=== PATIENT | female | born 1950 | race Caucasian/White ===

== ENCOUNTER 2017-04-13 13:38 | Inpatient (IN) | payer MEDICARE ==
--- NOTE | ~2017-04-13 | CN ---
Consultation Report [facility] [address] [place]. 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 She had a repair with an intercostal muscle patch at that time. She has had an NG tube in since that time, and has actually been fed for the last week with the NG tube which bypasses the area of repair. Gastrografin swallow done on 04/22/2017 demonstrated a leak emptying into a bladder track. She had a followup study done yesterday 04/28/2017, which I reviewed with the radiologist as it was being done showing a still small area of a contained track in the distal third of the esophagus that did not empty into the thoracic cavity proper. The patient has tolerated the NG feedings fine, but she has had the NG tube in long time and her nose quite sore. She originally refused the swallowing study yesterday, but agreed reluctantly. Since the leak did persist, it was reasonable to proceed with a jejunostomy tube which will be done. After this is done, she can get good nutritional support and have the NG tube removed and feedings. PAST MEDICAL HISTORY: She has a history of sinus surgery, hypertension, decreased lung function, chronic pain, thyroid surgery, and three failed sinuses surgeries. SOCIAL HISTORY: She lives alone and denies substance abuse or tobacco or alcohol utilization. PHYSICAL EXAMINATION: GENERAL: She is an extremely anxious moderately obese white female, in no acute distress at the time of this exam. NG tube in place. HEENT: Showed no real lateralization. NECK: Supple. CHEST: Clear with a left chest with some decreased inspiratory effort and a few scattered rales in the base. HEART: Revealed a regular rate and rhythm. ABDOMEN: Quite obese and soft with no history of previous surgery. No scars or problems other than the sites from previous subcu injections. EXTREMITIES: Grossly anatomic, moderately atrophic especially in the lower extremities. She has been quite deconditioned apparently since her original pathology was addressed. The patient is presently on a number of antibiotics including Zosyn, and I have discussed the case with Dr. Chong as well as his nurse, Beena Perez. We will go ahead and do a feeding jejunostomy laparoscopically assisted and risk of that procedure discussed with the Consultation Report [address] [facility] [address] NAME: BIBI TRUJILLO : 52 STATUS : ADM IN PAT#: [id number] AGE: 66 ADM/REG DATE : 04/13/17 MR#: [id number] REPORT SERV DATE: 04/29/17 DICTATED BY: ALANA COTTON III DATE: 04/29/17 REPORT STATUS : Draft TRANSCRIBED BY: VENESSA DATE: 04/29/17 patient including leak of the bowel, bowel obstruction, peritonitis, infection, and bleeding. DIAGNOSIS: The patient is status post Boerhaave syndrome with repair in need of nutritional support to allow rest of the esophageal lumen for expected slow resolution of the leak. RB/VENESSA Alana Cotton III, M.D. / [id number] CC: Raj Medrano MD UNKNOWN José Luis Chong Jr., M.D.
--- NOTE | ~2017-04-13 | CN ---
Consultation Report [facility] [address] [place]. [address] NAME: BIBI TRUJILLO : 52 STATUS : ADM IN PAT#: [id number] AGE: 66 ADM/REG DATE : 04/13/17 MR#: [id number] REPORT SERV DATE: 04/14/17 DICTATED BY: GAGAN WAGGONER DATE: 04/13/17 REPORT STATUS : Draft TRANSCRIBED BY: MODL DATE: 04/13/17 CONSULTATION DATE OF CONSULTATION: 04/13/2017 REASON FOR CONSULTATION: Evaluation for Boerhaave syndrome. HISTORY: The patient is a 66-year-old female, who presented to [facility] at approximately 0300 hours this morning after having what she describes as a food bolus the night previous. She has had history of multiple food boluses in the past for which she is cleared by gagging. However, this one persisted. She had pain in response to this and presented to the emergency department for intractable pain. GI was initially consulted, who are going to scope her this morning, however, a CT scan was obtained early this morning, which showed air-fluid levels in the esophagus, some free air around the esophagus, as well as a small left-sided pleural effusion. She has been transferred down to [facility] for further evaluation. The patient is overall comfortable at this time and said that she feels like she does not have a food bolus in her esophagus anymore. She has been started on a Protonix drip. She has been kept n.p.o. PAST MEDICAL HISTORY: Significant for hypertension, asthma, COPD, and obstructive sleep apnea. PAST SURGICAL HISTORY: Partial thyroidectomy and three sinus surgeries. FAMILY HISTORY: Significant for hypertension. ALLERGIES: CODEINE. HOME MEDICATIONS: Include aspirin and losartan. SOCIAL HISTORY: She lives with family. Denies tobacco or alcohol abuse. REVIEW OF SYSTEMS: Otherwise negative that which was stated in the HPI. PHYSICAL EXAMINATION: VITAL SIGNS: She is afebrile and vital signs are currently stable. HEENT: Normocephalic, atraumatic with no scleral icterus. NECK: Supple with no thyromegaly. CHEST: Clear to auscultation bilaterally. HEART: Regular rate and rhythm with no murmurs, rubs, or gallops. ABDOMEN: Soft, nontender, and nondistended. EXTREMITIES: Warm with 1+ distal pulses. No clubbing, cyanosis, or edema. MUSCULOSKELETAL: Grossly intact. NEUROLOGIC: Grossly intact. Consultation Report [facility] [address] [place]. [address] NAME: BIBI TRUJILLO : 51 STATUS : ADM IN PAT#: [id number] AGE: 66 ADM/REG DATE : 04/13/17 MR#: [id number] REPORT SERV DATE: 04/14/17 DICTATED BY: GAGAN WAGGONER DATE: 04/13/17 REPORT STATUS : Draft TRANSCRIBED BY: VENESSA DATE: 04/13/17 STUDIES: I personally reviewed her CT scan and agree with a small left-sided pleural effusion as well as air-fluid levels throughout the esophagus, as well as some air stranding around the distal esophagus. IMPRESSION: Boerhaave syndrome with possible food bolus. PLAN: I would recommend keeping her n.p.o. with fluid hydration and possible TPN in the future. We will send her for a swallowing study to evaluate the amount of leak if any persist. If she continues with food boluses when I asked GI to scope her to remove any food bolus disease. In the mean time, I would recommend following her with daily CBCs and if the effusion became larger, possibly tapping this or having IR placed a small bore tube. We will reserve surgery only if necessary and hopefully, this will heal itself. CCR/MODL Gagan Waggoner M.D. / [id number] CC: Rosana Telles M.D.
--- NOTE | ~2017-04-13 | IDS ---
Interim Discharge Summary [facility] [address] [place]. [address] NAME: IBBI TRUJILLO : 52 STATUS : ADM IN PAT#: [id number] AGE: 66 ADM/REG DATE : 04/13/17 MR#: [id number] REPORT SERV DATE: 04/27/17 DICTATED BY: ESTRELLA RUIZ DATE: 04/27/17 REPORT STATUS : Draft TRANSCRIBED BY: MODL DATE: 04/27/17 ADMISSION DATE: 04/13/2017 DISCHARGE DATE: CURRENT HOSPITAL DIAGNOSES: 1. Status post esophageal rupture status post repair on 04/13/2017. 2. Shock. 3. Severe delirium, markedly improved. 4. Supraventricular tachycardia. 5. Chronic obstructive pulmonary disease/asthma. 6. Diabetes. 7. Gastroesophageal reflux disease. CONSULTATIONS: Cardiology, Cardiothoracic Surgery, GI, and Critical Care. PROCEDURES: As listed in interim summary on the . CURRENT PHYSICAL FINDINGS AND HPI: Please see additional initial dictated H and P on the as well as interim summary by Dr. Hoang on the . Dictation will continue from that point. The patient was being seen by Pulmonary Critical Care and Cardiothoracic Surgery. She was improving from her delirium. Serial labs were followed and on the , CPAP trials were initiated. Additional labs were drawn including a BMP and a procalcitonin. On the , Lasix and albumin were given. PICC line was placed. Cardiology continued to follow. Her IV amiodarone was transitioned through her tube. After the PICC line was placed, TPN was initiated with pharmacy following. On the , full cultures were drawn including a central line culture, and vancomycin was initiated. TPN occurred without difficulty. On the , it was elected to proceed with weaning to extubation, if possible additional Lasix and albumin were given, and thiamine was initiated. On the , she required a Cardene drip. Cardiothoracic surgery also ordered a Gastrografin study on the . Pharmacy continued to follow her vancomycin and her TPN. On the , she had hypertension, hydralazine was given, and Cardiology was consulted. Cardizem drip was transitioned from the Cardene. On the , she continued again with albumin and Lasix. Levemir was initiated. PT was requested. Cardiology discontinued her amiodarone and her Cardene, started her on metoprolol, Norvasc, and clonidine. She also had an increase to a level 3 sliding scale. This titrated up on . On the , ARB losartan 50 was initiated. She started tube feeds and started weaning her Jevity. She continued with PT. Her chest tubes on the were transitioned to water seal, and she was felt able to transfer to the floor with again escalation in her insulin coverage. She was also starting to get slightly hypernatremic at that point, her free water was increased to 100, she was receiving tube feeds, weaning TPN, and IV normal saline at 30. She tolerated transition over to the tube feeds. Cardiology signed off on the recommending an additional 2 weeks of amiodarone per her NG tube and then discontinue. I saw her on the . Serial lab was ordered. Cardiothoracic Surgery continued monitoring her chest x-rays and repeating her swallow studies. Her free water was increased on the to 150. On the , she was evaluated by Psychiatry and felt safe to discontinue her Zyprexa. Gastrografin is currently pending. She did receive some IV fluids for her hypernatremia which has improved her sodium somewhat. Interim Discharge Summary [address] [address] NAME: BIBI TRUJILLO : 52 STATUS : ADM IN [facility]#: [id number] AGE: 66 ADM/REG DATE : 04/13/17 MR#: [id number] REPORT SERV DATE: 04/27/17 DICTATED BY: ESTRELLA RUIZ DATE: 04/27/17 REPORT STATUS : Draft TRANSCRIBED BY: MODL DATE: 04/27/17 A repeat will be done tomorrow. Her free water continued to be increased. She will have no tube feeds tonight pending her swallow study in a.m. TLF/LARRYL Estrella Ruiz M.D. / [id number] CC: Estrella Ruiz M.D.
--- NOTE | ~2017-04-13 | DS ---
Discharge Summary [facility] [address] [place]. [address] NAME: BIBI TRUJILLO : 52 STATUS : DIS IN PAT#: [id number] AGE: 66 ADM/REG DATE : 04/13/17 MR#: [id number] REPORT SERV DATE: 05/05/17 DICTATED BY: JENNIFER CHIU DATE: 05/04/17 REPORT STATUS : Draft TRANSCRIBED BY: MODL DATE: 05/04/17 ADMISSION DATE: 04/13/2017 DISCHARGE DATE: 05/04/2017 This dictation is in addition to interim discharge summary dictated by Dr. Barahona on 04/27/2017. I assumed care of the patient on 04/28/2017. At the time of my assumption of care, the patient was status post esophageal rupture repair, was transferred out of the ICU to the floor. The patient had repeat imaging to evaluate resolution of the rupture; however, per imaging, rupture was still present. Therefore, recommendation was made for a J tube to be placed for nutrition. The patient had a J-tube placed on 04/29/2017. She tolerated the procedure well. Nutrition was subsequently consulted. Recommendations were made for tube feed and tube feeds were initiated. The patient tolerated tube feeds well without any residuals and rate was slowly up titrated until reached a goal of 70. Also during her time under my care, the patient was re-evaluated by Physical Therapy with recommendations that the patient can be discharged home on Home Health. At the time of my assumption of care, the patient was hypernatremic that has subsequently been corrected. She has subsequently remained hemodynamically stable and has gradually improved both clinically and in terms of her strength. Given significant improvement during conclusion of workup during clearance by all specialties involved, the patient will be discharged home today with home health. Plan has been discussed with the patient, who voices understanding and is agreeable with this plan. All other information on the discharge summary remains the same. DISCHARGE MEDICATIONS: 1. Amiodarone 200 mg p.o. twice a day to be stopped 05/09/2017. 2. Losartan 50 mg p.o. daily. 3. Lopressor 25 mg p.o. twice a day. 4. Aspirin 81 mg p.o. daily. 5. Metformin 500 mg p.o. b.i.d. CONSULTANTS: CT Surgery and Psychiatry. DISPOSITION: The patient will be discharged home with home health. ACTIVITY: As tolerated. DIET: Diabetic diet. Greater than 30 minutes was spent providing counseling, medication reconciliation, and dictation of note. DICTATED BY: MD BIJU Dick/VENESSA Discharge Summary [facility] [address] [place]. [address] NAME: BIBI TRUJILLO : 52 STATUS : DIS IN PAT#: [id number] AGE: 66 ADM/REG DATE : 04/13/17 MR#: [id number] REPORT SERV DATE: 05/05/17 DICTATED BY: JENNIFER CHIU DATE: 05/04/17 REPORT STATUS : Draft TRANSCRIBED BY: VENESSA DATE: 05/04/17 Jennifer Chiu MD / [id number] CC: MD Radha Dick M.D.
--- NOTE | ~2017-04-13 | IDS ---
Interim Discharge Summary [facility] [address] [place]. [address] NAME: BIBI TRUJILLO : 52 STATUS : ADM IN PAT#: [id number] AGE: 66 ADM/REG DATE : 04/13/17 MR#: [id number] REPORT SERV DATE: 04/19/17 DICTATED BY: EARNESTINE HOANG IV DATE: 04/19/17 REPORT STATUS : Draft TRANSCRIBED BY: MODAlberto DATE: 04/19/17 ADMISSION DATE: 04/13/2017 DISCHARGE DATE: Date of the transfer to the [facility] is 04/13/2017. REASON FOR ADMISSION: 1. Esophageal rupture, status post repair on 04/13/2017. 2. Shock, requiring vasopressor agents, now off. 3. Severe delirium with concerns about outpatient psychiatric issues, improved on sublingual Zyprexa as well as Precedex. 4. SVT, on amiodarone drip. 5. COPD/asthma, on bronchodilator medications. 6. New diagnosis of diabetes mellitus, on insulin coverage. 7. GERD. CONSULTANTS: 1. [facility], who have signed off. 2. Cardiothoracic Surgery, who continued to follow the patient. 3. Gastroenterology, who have signed off. 4. Critical Care Medicine, who assumed primary responsibility. SURGERIES: The patient underwent primary repair of the esophageal tear and removal of food from the left thorax on 04/13/[address] Leonardo and assisted by Dr. Jeff. MEDICATIONS: Please see the electronic record. HOSPITAL COURSE: The patient presented to [facility] with a sensation of food lodging after eating steak and potatoes. CT scan demonstrated no obvious tear, though bilateral small effusions with esophageal thickening. The patient was transferred as per Gastroenterology's recommendations to the [facility] to the Critical Care Service. Dr. Burnette saw the patient. A Gastrografin study demonstrated complete obstruction at the gastroesophageal junction with extravasation of contrast into the left paraesophageal space and a distal tear. The patient underwent surgery with a left thoracotomy and evacuation of food and repair of the esophageal rupture. Chest tube was left in place. Postoperatively, the patient was hemodynamically unstable and required vasopressor agents. The patient was empirically placed on vancomycin, Zosyn, and Diflucan; however, all subsequent cultures have been negative to date. The patient developed severe postoperative delirium and self extubated on 04/14/2017. She was reintubated on 04/15/2017 and has continued to have significant delirium. That has improved on Precedex and the initiation of sublingual Zyprexa, which she continued to receive. Cardiothoracic Surgery has not allowed use of her nasogastric tube, though is allowing medications starting on 04/19/2017. The patient developed SVT on 04/15/2017, for which she was placed on amiodarone drip and Cardiology was consulted. She has remained in normal sinus; however, she remains on low-dose amiodarone drip as well. Hemoglobin A1c was found to be markedly elevated at 10.4 and she has been on insulin coverage, though currently has received no nutrition, which hopefully we will be Interim Discharge Summary [address] [place]. [address] NAME: BIBI TRUJILLO : 52 STATUS : ADM IN PAT#: [id number] AGE: 66 ADM/REG DATE : 04/13/17 MR#: [id number] REPORT SERV DATE: 04/19/17 DICTATED BY: EARNESTINE HOANG IV DATE: 04/19/17 REPORT STATUS : Draft TRANSCRIBED BY: VENESSA DATE: 04/19/17 able to start in the next few days through the nasogastric tube. She developed some wheezing, for which she is on bronchodilator medications. The patient, had previously, because of her agitation, not been able to be initiated on weaning trials, which have been initiated at this time. The Critical Care team will continue to follow the patient. PRAKASH/VENESSA Earnestine Hoang IV, M.D. / [id number] CC: Campbell Granados MD
--- NOTE | ~2017-04-13 | OP ---
Record Of Operation [facility] [address] [place]. [address] NAME: BIBI TRUJILLO : 52 STATUS : ADM IN [facility]#: [id number] AGE: 66 ADM/REG DATE : 04/13/17 MR#: [id number] REPORT SERV DATE: 04/14/17 DICTATED BY: GAGAN WAGGONER DATE: 04/13/17 REPORT STATUS : Draft TRANSCRIBED BY: MODL DATE: 04/13/17 DATE OF PROCEDURE: 04/13/2017 PREOPERATIVE DIAGNOSIS: Ruptured esophagus with food bolus. POSTOPERATIVE DIAGNOSIS: Ruptured esophagus with food bolus. PROCEDURE: 1. Emergency left thoracotomy with evacuation of food bolus and two layer repair of esophageal rupture. 2. Intercostal muscle patch. SURGEON: Gagan Waggoner M.D. DIE TURNER SURGEON: José Luis Jeff M.D. SURGICAL ASSISTANTS: Aguilar Cook MD and Mack Botello. SPECIMENS REMOVED: Food bolus. ESTIMATED BLOOD LOSS: 100 mL. SPECIMENS: Also left milky pleural effusion approximately 500 mL and sent for culture. COMPLICATIONS: None. CONDITION: Guarded to ICU. HISTORY: The patient is a 66-year-old female, who presented to the emergency department with a food bolus. She has had multiple fluid boluses in the past. This is normally cleared by retching. Unfortunately after period of retching, she had extreme chest and thigh pain, and a CT scan showed an esophageal tear with containment in the mediastinum. She then underwent an esophageal swallow study which showed the food bolus to be present with a large posterior leak. She was therefore brought emergently to the operating room. PROCEDURE: After informed consent was obtained from the patient, she was brought to the operating room, laid in a supine position and general anesthesia was induced. She was then placed in a right lateral decubitus position and prepped and draped in normal fashion. A posterior lateral left thoracotomy incision was made. The latissimus dorsi was . The ribs were counted, and the 6th intercostal space was entered. An intercostal muscle patch was also harvested at this time. This was pedicled at the posterior portion. The inferior ligament of the left lower lobe was taken down using Bovie electrocautery. There was obvious contamination with milky pleural effusion evacuated and sent for culture. Dissection was then carried above the aorta in the region of the esophagus. There was food bolus that had exited the esophagus, and this was evacuated. The esophagus was identified, and a Rio drain placed around the esophagus. The muscular layer was Record Of Operation [facility] [address] [facility] [place]. [address] NAME: BIBI TRUJILLO : 52 STATUS : ADM IN PAT#: [id number] AGE: 66 ADM/REG DATE : 04/13/17 MR#: [id number] REPORT SERV DATE: 04/14/17 DICTATED BY: GAGAN WAGGONER DATE: 04/13/17 REPORT STATUS : Draft TRANSCRIBED BY: MODL DATE: 04/13/17 proximally and distally to delineate the true extent of the mucosal injury. A 28 bougie was placed down the esophagus and distal into the stomach. Interrupted 4-0 PDS in a figure-of- eight were placed to repair the mucosal layer. This time, the bougie was removed and a nasogastric tube placed distally into the stomach. The muscular layer was then repaired using interrupted 4-0 PDS in a [id number] fashion. The intercostal muscle patch was then laid on top of the defect and tacked down using Prolene sutures. A 28 straight chest tube and a 32 angled chest tube were placed. A #19 Maycol was also placed through a separate incision and laid over top of the repair. The ribs were reapproximated using #2 Vicryl sutures in a [id number]-[id number] fashion. The lungs were insufflated and filled the cavity well. The latissimus dorsi was then reapproximated followed by the subcutaneous and subcuticular tissue. Overall, the patient tolerated procedure well, was transported to the ICU, intubated in guarded condition. CCR/MODL Gagan Waggoner M.D. / [id number] CC: Rosana Telles M.D.
--- NOTE | ~2017-04-13 | OP ---
Record Of Operation [facility] [address] [place]. [address] NAME: BIBI TRUJILLO : 52 STATUS : ADM IN PAT#: [id number] AGE: 66 ADM/REG DATE : 04/13/17 MR#: [id number] REPORT SERV DATE: 04/29/17 DICTATED BY: ALANA COTTON III DATE: 04/29/17 REPORT STATUS : Draft TRANSCRIBED BY: MODL DATE: 04/29/17 DATE OF PROCEDURE: 04/29/2017 PREOPERATIVE DIAGNOSIS: The patient needed nutritional support after a Boerhaave syndrome with repair done on 04/13/2017 and documented leak at the site of the repair on two different swallow tests. The patient needs to rest her esophagus for proposed spontaneous scarring in and nutritional support needed via another enteral access. POSTOPERATIVE DIAGNOSIS: The patient needed nutritional support after a Boerhaave syndrome with repair done on 04/13/2017 and documented leak at the site of the repair on two different swallow tests. The patient needs to rest her esophagus for proposed spontaneous scarring in and nutritional support needed via another enteral access. PROCEDURE: Laparoscopic-assisted feeding jejunostomy followed by the block of the left costal margin using 30 mL of 0.5% Marcaine with epinephrine. HANGER OFF: Kati Cotton RN, [facility]. ANESTHESIA: General with endotracheal tube, supplemented with the left costal margin block, performed by this physician. SPECIMEN: There was no specimen. ESTIMATED BLOOD LOSS: Less than 10 mL. COMPLICATION: Instruments not available for the operative laparoscope and had to be sent for, which caused a significant delay in the operation with the patient under anesthesia. PROCEDURE IN DETAIL: The patient was prepped and draped in routine fashion. Adequate general anesthesia endotracheally administered and a time-out was called. All personnel were in agreement with the antibiotics, the allergies, and proposed procedure. The patient is allergic to codeine. The patient's abdomen was approached through a small left upper quadrant transverse incision. An open trocar technique was used to place a 12 mm balloon port in the peritoneal cavity. The operating telescope was then used with a 0 angle and the operating arm was utilized to manipulate the bowel. The omentum was stuck down to the left lateral gutter. The omentum was quite abundant and there was a lot of gaseously distended small bowel Due to the inability to get a satisfactory grasping forceps to work through the operative scope, it was necessary to put an extra 5 mm port in the patient's left lower quadrant and a third port was placed at the site for the proposed feeding jejunostomy tube in the left lower quadrant more laterally and more at the mid axillary line, which the second trocar 5 mm trocar placed at the midclavicular line. The laparoscopic view showed a relatively normal liver and normal intestine with a few adhesions. The 5 mm trocar sites were used for manipulation of the small bowel and the bowel was run by bioinstrumentation technique. I initially run the bowel from the mid portion all way to the ileocecal valve. After this had Record Of Operation [facility] [address] [place]. [address] NAME: BIBI TRUJILLO : 52 STATUS : ADM IN [facility]#: [id number] AGE: 66 ADM/REG DATE : 04/13/17 MR#: [id number] REPORT SERV DATE: 04/29/17 DICTATED BY: ALANA COTTON III DATE: 04/29/17 REPORT STATUS : Draft TRANSCRIBED BY: VENESSA DATE: 04/29/17 been established, the bowel was run retrograde all the way to the ligament of Treitz. After the ligament of Treitz had been clearly identified, the bowel approximately 35 cm from the ligament of Treitz was marked with a score using cautery and the bowel was brought up through the 5 mm incision site, which was enlarged with a scalpel opening the fascia and allowing the bowel to be brought up as an apex of the bowel, brought up through the 5 mm trocar site utilizing an atraumatic forceps to bring it up the appropriate level. A cautery scoring was utilized to steven the distal side of the bowel so that we could thread the jejunostomy tube in that direction. After this was done, the bowel was brought up to the surface of the incision and enlarged approximately 3 cm and the small bowel apex was brought up and the pursestrings placed doubly using 3-0 silk suture into the apex of the jejunum. The gastrointestinal feeding tube 22-Indian with a jejunostomy feeding extension was then utilized with a total length of the jejunal length was 57.9 cm. The gastric end was placed in the small bowel through the double pursestring and the jejunal limb threaded into the small bowel with the weighted tip pointed distally. It was impossible to totally thread the bowel due to the small incision, but the weighted tip should allow it to go distally with the peristaltic motion. Both the limbs irrigated nicely with no resistance and no leakage. After this was done, a serosal tunnel was created with 3-0 silk Lembert sutures over the bowel tube. 2-0 silk was then utilized to sew the jejunostomy tunneled section to the fascia and posterior fascia and peritoneum. After this was done, irrigation carried out and the procedure closed with a running suture of 0 Vicryl using suture from both the ends of the 3.5 cm left lower quadrant incision. After this was done, the area was reinspected utilizing the scope in the left upper quadrant and it appeared that the peritoneum was not very fully closed, therefore, a Chris trocar closure device was used to pull the peritoneal and posterior fascia levels together using 0 Vicryl under laparoscopic control. After this was placed, we tied down, good approximation of the peritoneum anterior and posterior fascias was accomplished. This was done using two different [id number] sutures of 0 Vicryl. After this was done, the area was irrigated with normal saline and the subcutaneous tissue closed with running suture of 3-0 Vicryl. The skin was closed with running subcuticular suture of 4-0 Monocryl. The left upper quadrant 12 mm trocar site was closed with figure-of eight sutures of 0 Vicryl and the subcutaneous tissue was irrigated and closed with interrupted 3-0 Vicryl. The skin was closed with running subcuticular suture of 4-0 Monocryl. The trocar sites being closed at the skin level all completely with 4-0 Monocryl subcuticular suture. Bandages were applied and the jejunostomy, gastric, and jejunal level limbs were irrigated. Since the gastric limb was truly not in the stomal, it was elected to place the gastric limb with approximately 5 mL of saline in the jejunal lumen, but the label was removed using a #10 knife blade, so that it did not read a gastric lumen since it is truly in the jejunum as was the other limb. Either limb could be used for feedings, but technically the distal limb would be more appropriate since it is further down in the jejunum. After this was completed, all wounds were dressed and the procedure was concluded. Left Record Of Operation [facility] [address] [place]. [address] NAME: BIBI TRUJILLO : 52 STATUS : ADM IN PAT#: [id number] AGE: 66 ADM/REG DATE : 04/13/17 MR#: [id number] REPORT SERV DATE: 04/29/17 DICTATED BY: ALANA COTTON III DATE: 04/29/17 REPORT STATUS : Draft TRANSCRIBED BY: VENESSA DATE: 04/29/17 costal margin block was performed using 30 mL of 0.5% Marcaine with epinephrine as well as local infiltration around the incision sites. The patient tolerated the procedure well. RB/VENESSA Alana Cotton III, M.D. / [id number] CC: Raj Medrano MD UNKNOWN José Luis Chong Jr., M.D.
--- NOTE | ~2017-04-13 | CN ---
Consultation Report [facility] [address] [place]. [address] NAME: MARIA INES TRUJILLO : 52 STATUS : ADM IN PAT#: [id number] AGE: 66 ADM/REG DATE : 04/13/17 MR#: [id number] REPORT SERV DATE: 04/16/17 DICTATED BY: MARCUS MO DATE: 04/15/17 REPORT STATUS : Draft TRANSCRIBED BY: MODL DATE: 04/15/17 CARDIOLOGY CONSULTATION DATE OF CONSULTATION: 04/15/2017 REQUESTING PROVIDER: CT Surgery Service, Himanshu Zimmerman. INDICATIONS: SVT. HISTORY OF PRESENT ILLNESS: Ms. Maria Ines Trujillo is a 66-year-old female, who initially presented to [facility] where she was found to have a Boerhaave syndrome with intractable chest pain. She was found to have a ruptured esophagus, underwent thoracotomy and esophageal repair with Dr. Gagna Baez. This was performed on 04/13/2017. A food bolus was removed. She has had difficulties with some delirium and agitation in the ICU requiring significant sedation. She has had runs of SVT, question reentrant versus PAT with rates up to 170 beats per minute. These have been intermittent lasting probably less than a couple of minutes before resolving. She is on norepinephrine and vancomycin and Zosyn. For full details regarding the patient's presentation, please see Dr. Lares's note from 04/13/2017. PAST MEDICAL HISTORY: Hypertension, COPD, degenerative disc disease, chronic low back pain, osteoarthritis, previous thyroidectomy, diabetes. FAMILY HISTORY: Noted for hypertension. ALLERGIES: CODEINE. PRESENT MEDICATIONS: Aspirin and losartan. SOCIAL HISTORY: Lives with the family. Apparently, no alcohol or tobacco. REVIEW OF SYSTEMS: As per the HPI and is extensively documented in the hospitalist's admission H and P from 04/13/2017 from which I reviewed. PHYSICAL EXAMINATION: VITAL SIGNS: Blood pressure is 118/78, pulse is 76, respiratory rate is 18. GENERAL: Appears stated age, no distress. EYES: Sclerae anicteric, no arcus senilis. MOUTH: Oral mucosa moist, lips acyanotic. NECK: Jugular venous pressure normal, no carotid bruits. LUNGS: Clear anterior. Normal inspiratory effort. CARDIAC: Irregular rhythm, somewhat distant. Consultation Report [facility] [address]. [address] NAME: MARIA INES TRUJILLO : 52 STATUS : ADM IN PAT#: [id number] AGE: 66 ADM/REG DATE : 04/13/17 MR#: [id number] REPORT SERV DATE: 04/16/17 DICTATED BY: MARCUS MO DATE: 04/15/17 REPORT STATUS : Draft TRANSCRIBED BY: VENESSA DATE: 04/15/17 ABDOMEN: Morbidly obese. Nondistended, nontender. EXTREMITIES: Mild edema. SKIN: Warm and dry. NEURO/PSYCH: Sedated. DATA: Creatinine 0.7, potassium 3.8. ECG from 12:28 today is SVT at a rate of 172 beats per minute. It is possibly reentrant versus cannot rule out PAT, as it maybe some visible atrial activity at the initiation of the episode. IMPRESSION: 1. Recurrent supraventricular tachycardia versus paroxysmal atrial tachycardia. 2. Boerhaave syndrome. 3. Sepsis and fevers, on antibiotics. 4. Diabetes. 5. Delirium. RECOMMENDATIONS: Treated with intravenous amiodarone and then transition to enteral amiodarone tomorrow morning. We will follow. ASHLEY/VENESSA Marcus Mo M.D. / [id number] CC: Rosana Telles M.D.
--- NOTE | ~2017-04-13 | CN ---
Consultation Report [facility] [address] [place]. [address] NAME: BIBI TRUJILLO : 52 STATUS : ADM IN PAT#: [id number] AGE: 66 ADM/REG DATE : 04/13/17 MR#: [id number] REPORT SERV DATE: 04/27/17 DICTATED BY: LUCIANO FIELD DATE: 04/27/17 REPORT STATUS : Draft TRANSCRIBED BY: MODAlberto DATE: 04/27/17 PSYCHIATRIC CONSULTATION DATE OF CONSULTATION: 04/27/2017 I reviewed this patient's medical record. I discussed patient's status with Dr. Barahona. HISTORY OF PRESENT ILLNESS: She was recently transferred from the ICU where she had postoperative respiratory failure and delirium. She is status post a thoracotomy for esophageal rupture. She was started on Zyprexa in the ICU. For the past few days, she has been refusing the Zyprexa. It was discontinued earlier today. PAST PSYCHIATRIC HISTORY: She reports no previous psychiatric issues. SOCIAL HISTORY: She has been and once. 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 She now lives alone. She collects, buys, and sells vintage clothing and vintage objects. FAMILY HISTORY: Her brother had alcoholism. She reported that her father may have had an acute psychiatric issue at one point in his life. MENTAL STATUS: She was talkative and cooperative in attitude. She talked about her traumatic experience in the ICU when she was in restraints. She thought she experienced psychotic symptoms from the prescribed opiates or other [employer] medications. Her mood was euthymic. Her affect was appropriate. Her thinking was logical. She had no current delusions. She had no hallucinations. She was oriented to day, date, location, and persons. DIAGNOSIS: Delirium, improved, with an element of acute stress disorder. RECOMMENDATIONS: I agree with stopping the Zyprexa. I see no need for further psychiatric intervention. I will sign off. ROOPA/VENESSA Luciano Field M.D. / [id number] CC: Hayder Barahona M.D. UNKNOWN
--- NOTE | ~2017-04-13 | CN ---
Consultation Report [facility] [address] [place]. [address] NAME: BIBI TRUJILLO : 52 STATUS : ADM IN PAT#: [id number] AGE: 66 ADM/REG DATE : 04/13/17 MR#: [id number] REPORT SERV DATE: 04/14/17 DICTATED BY: NILDA BURNETTE DATE: 04/13/17 REPORT STATUS : Draft TRANSCRIBED BY: MODL DATE: 04/13/17 CRITICAL CARE CONSULTATION. DATE OF CONSULTATION: 04/13/2017 HISTORY OF PRESENT ILLNESS: The patient is a 66-year-old white female, who underwent operation for ruptured esophagus secondary to Boerhaave syndrome. According to the record, the patient had been eating steak and potatoes for dinner, and developed signs and symptoms of food bolus obstruction which apparently she has had previously, although I have no current records to that fact. The patient started to have symptoms 4 hours prior to coming to [facility], where she was evaluated. She has small amounts of clear liquid water in emesis after was given some Sprite. She had complained of her back, developed chest pain, localized retrosternal middle of chest nonradiating pain. The pain was not relieved by IV medication or with attempts of gagging or attempts of p.o. intake. At that time, no palpitations or diaphoresis. No coffee ground emesis. CT scan revealed evidence of a small left and trace right pleural effusion, esophagitis with normal aorta; no evidence of embolism; possible Boerhaave syndrome. Concern for an air-fluid levels throughout the esophagus with diffuse thickening of distal esophagus and subserosal area to distal esophageal and GE junction. No pulmonary embolism. The patient was transferred to [facility] for surgical evaluation. The patient was taken under Surgery. PAST MEDICAL HISTORY: Significant for hypertension, COPD with 30% lung function. Asthma, COPD, obstructive sleep apnea. DJD of the back, apparent history of exposure to chick and feathers, asthma. PAST SURGICAL HISTORY: Significant for partial thyroidectomy in 2007, sinus surgery x3. FAMILY HISTORY: Significant for hypertension. ALLERGIES: TO CODEINE. HOME MEDICATIONS: Include aspirin and losartan 50 mg p.o. daily. SOCIAL HISTORY: She is a nonsmoker and nondrinker. Denies alcohol use. REVIEW OF SYSTEMS: Otherwise negative and noncontributory. PHYSICAL EXAMINATION: VITAL SIGNS: Currently on examination seen postop, blood pressure 79/53, pulse 77, sat 99% to 100%. She is orally intubated. HEENT: Head is normocephalic. Sclerae and conjunctivae are clear. There is a right Consultation Report [facility] [id number] [place]. [address] NAME: BIBI TRUJILLO : 52 STATUS : ADM IN [facility]#: [id number] AGE: 66 ADM/REG DATE : 04/13/17 MR#: [id number] REPORT SERV DATE: 04/14/17 DICTATED BY: NILDA BURNETTE DATE: 04/13/17 REPORT STATUS : Draft TRANSCRIBED BY: MODL DATE: 04/13/17 nasogastric tube. Oral endotracheal tube in place. NECK: Supple. CHEST: Decreased breath sounds. Two chest tubes on the left, a Maycol drain. CARDIAC: S1, S2. Regular. ABDOMEN: Soft and nontender. No masses. EXTREMITIES: No clubbing, cyanosis, or edema. Pulses palpable. Good capillary refill. NEUROLOGIC: She is still sedated and paralyzed. LABORATORY VALUES: Hemoglobin A1c of 10.4. Gram stain of pleural fluid many wbc's seen on microorganisms. Of note, the surgeon said there was corn and beef removed from the pleural space. Blood gas at 1939 hours was pH of 7.22, pCO2 of 59, PO2 of 77. Sodium was 136, potassium 3.8, chloride 103, CO2 of 24, BUN 16, creatinine 1.22, glucose 377, currently on insulin drip, and calcium 9.0. CBC at 1830 hours showed an H and H of 15.0 and 43.7, white count 15603, and platelet count 358,000. Procalcitonin was 7.87. At 1527 hours TSH 1.350, and CPK 336. Esophagram showed ingestion of contrasted free flow to distal esophagus extravasation contrast into left paraesophageal tissues. There is complete obstruction at GE junction with the underlying distal esophageal tear. The patient underwent esophageal repair and poor fluid drainage. Currently now in the ICU. IMPRESSION: 1. Status post Boerhaave syndrome. 2. Postop ventilation. 3. Mild hypotension. She received approximately 1800 mL of fluid according to the anesthesia record was reviewed. I initiated Levophed and monitor IV fluid status and renal output. Continue her antibiotic therapy. RP/MODL Nilda Burnette M.D. / [id number] Consultation Report [address] [address] NAME: BIBI TRUJILLO : 52 STATUS : ADM IN PAT#: [id number] AGE: 66 ADM/REG DATE : 04/13/17 MR#: [id number] REPORT SERV DATE: 04/14/17 DICTATED BY: NILDA BURNETTE DATE: 04/13/17 REPORT STATUS : Draft TRANSCRIBED BY: LARRYL DATE: 04/13/17 CC: Rosana Telles M.D.
--- NOTE | ~2017-04-13 | OP ---
Record Of Operation [facility] [place] [address] NAME: BIBI TRUJILLO : 52 STATUS : ADM IN PAT#: [id number] AGE: 66 ADM/REG DATE : 04/13/17 MR#: [id number] REPORT SERV DATE: 04/15/17 DICTATED BY: NILDA BURNETTE DATE: 04/15/17 REPORT STATUS : Draft TRANSCRIBED BY: MODL DATE: 04/15/17 DATE OF PROCEDURE: 04/15/2017 TIME: 0736 hours. PROCEDURE: Intubation. INDICATION: Acute respiratory failure and distress. DESCRIPTION OF PROCEDURE: Pre-oxygenated 100% oxygen. Monitored by blood pressure, EKG, and pulse oximetry. Etomidate 20 mg IV given. A #7.5 tube placed seen to enter between cords by direct laryngoscopy, confirmed by end-tidal CO2 monitor. Good breath sounds bilaterally. Sat 100%. Post-chest x-ray ordered. The patient tolerated procedure well. End tidal CO2 marked positive change and tube seen to enter between cords. RP/VENESSA Nilda Burnette M.D. / [id number] CC: Rosana Telles M.D.
[~2017-04-13 13:38] MED LIST: COZ50 PEG; HALF81 PEG
[2017-04-13 16:31] LABS: INTERNATIONAL NORMAL RATI 1.1 UNITS (-); PARTIAL THROMBO TIME 27.4 SEC (22.5-37.2); PROTIME (NOT ORD) 14.4 SEC (12.0-14.5)
[2017-04-13 16:35] LABS: CPK 336 U/L (0-200); PHOSPHORUS, SERUM 3.3 MG/DL (2.5-4.5)
[2017-04-13 16:37] LABS: CK-MB 3.2 NG/ML
[2017-04-13 17:19] LABS: PROCALCITONIN 7.87 ng/mL (<0.5)
[2017-04-13 18:18] LABS: BASOPHILS 0.1 %; BASOPHILS ABSOLUTE 0.01 10/3/uL (0.0-0.16); EOSINOPHILS 0 %; HEMATOCRIT 43.7 % (36.0-48.0); IMMATURE GRANULOCYTES 0.3 %; IMMATURE GRANULOCYTES ABSOLUTE 0.04 10/3/uL (0.0-0.11); LYMPHOCYTES 5.5 %; MEAN CORPUS HGB CONC 34.3 g/dL (32.0-36.0); MEAN CORPUSCULAR HEMOGLOB 31.4 pg (26.0-34.0); MEAN CORPUSCULAR VOLUME 91.6 fL (80-100); MEAN PLATELET VOLUME 10.7 fL (9.2-13.0); MONOCYTES 4.7 %; MONOCYTES ABSOLUTE 0.68 10/3/uL (0.21-1.20); NEUTROPHILS 89.4 %; NEUTROPHILS ABSOLUTE 13.01 10/3/uL (2.02-8.40); PLATELET COUNT 358 10/3/uL (150-400); RBC DISTRIBUTION WIDTH 13.2 % (12.0-16.0); RED CELL COUNT 4.77 10/6/uL (4.0-5.6); WHITE BLOOD CELLS 14.5 10/3/uL (4.5-10.5)
[2017-04-13 18:22] LABS: MANUAL DIFF NO %
[2017-04-13 18:32] LABS: BUN (BLOOD UREA NITROGEN) 16 MG/DL (6-23); CHLORIDE, SERUM 103 MMOL/L (96-112); CO2 (CARBON DIOXIDE) 24 MMOL/L (24-34); CREATININE 1.22 MG/DL (0.55-1.02); GFR AFRICAN AMERICAN 54 ML/MIN (>=60); GFR NON AFRICAN AMERICAN 46 ML/MIN (>=60); POTASSIUM, SERUM 3.8 MMOL/L (3.5-5.3); SODIUM, SERUM 136 MMOL/L (135-148)
[2017-04-13 18:35] LABS: GLUCOSE, SERUM 377 MG/DL (60-99)
[2017-04-13 22:18] LABS: BE (BASE EXCESS) -2.7 MEQ/L (0 +/- 2.5); CARBOXYHEMOGLOBIN 0.4 % (0-3); HCO3 (ACTUAL BICARBONATE) 23.8 MEQ/L (23-27); HEMOBLOGIN CONTENT 14.4 G/DL (12-16); INSTRUMENT SERIAL # 11843; METHEMOGLOBIN 0.5 % (0-3); MODE CMV; OPERATOR ID 32193; PCO2 (CO2 TENSION) 48 MMHG (35-45); PO2 (O2 TENSION) 425 MMHG (79-93); SAMPLE Arterial; TIDAL VOLUME 500 ML; pH 7.32 (7.37-7.43)
[2017-04-13 22:32] LABS: BASOPHILS 0.2 %; BASOPHILS ABSOLUTE 0.02 10/3/uL (0.0-0.16); EOSINOPHILS 0 %; HEMATOCRIT 40.7 % (36.0-48.0); HEMOGLOBIN 13.5 g/dL (12.0-16.0); IMMATURE GRANULOCYTES 0.2 %; IMMATURE GRANULOCYTES ABSOLUTE 0.03 10/3/uL (0.0-0.11); LYMPHOCYTES 12.3 %; LYMPHOCYTES ABSOLUTE 1.52 10/3/uL (0.67-4.30); MANUAL DIFF NO %; MEAN CORPUS HGB CONC 33.2 g/dL (32.0-36.0); MEAN CORPUSCULAR HEMOGLOB 30.8 pg (26.0-34.0); MEAN CORPUSCULAR VOLUME 92.9 fL (80-100); MEAN PLATELET VOLUME 10.1 fL (9.2-13.0); MONOCYTES 6.1 %; MONOCYTES ABSOLUTE 0.76 10/3/uL (0.21-1.20); NEUTROPHILS 81.2 %; NEUTROPHILS ABSOLUTE 10.07 10/3/uL (2.02-8.40); PLATELET COUNT 339 10/3/uL (150-400); RBC DISTRIBUTION WIDTH 13.2 % (12.0-16.0); RED CELL COUNT 4.38 10/6/uL (4.0-5.6); WHITE BLOOD CELLS 12.4 10/3/uL (4.5-10.5)
[2017-04-13 22:39] LABS: INTERNATIONAL NORMAL RATI 1.2 UNITS (-); PARTIAL THROMBO TIME 29.5 SEC (22.5-37.2)
[2017-04-13 22:43] LABS: BUN (BLOOD UREA NITROGEN) 18 MG/DL (6-23); CALCIUM, SERUM 8.2 MG/DL (8.5-10.4); CHLORIDE, SERUM 110 MMOL/L (96-112); CO2 (CARBON DIOXIDE) 25 MMOL/L (24-34); CREATININE 1.09 MG/DL (0.55-1.02); GFR AFRICAN AMERICAN 62 ML/MIN (>=60); GFR NON AFRICAN AMERICAN 53 ML/MIN (>=60)
[2017-04-13 22:45] LABS: GLUCOSE, SERUM 166 MG/DL (60-99); POTASSIUM, SERUM 4.8 MMOL/L (3.5-5.3); SODIUM, SERUM 143 MMOL/L (135-148)
[2017-04-14 04:52] LABS: BASOPHILS 0.1 %; BASOPHILS ABSOLUTE 0.01 10/3/uL (0.0-0.16); EOSINOPHILS 0 %; HEMATOCRIT 39.6 % (36.0-48.0); HEMOGLOBIN 13.4 g/dL (12.0-16.0); IMMATURE GRANULOCYTES 0.3 %; IMMATURE GRANULOCYTES ABSOLUTE 0.03 10/3/uL (0.0-0.11); LYMPHOCYTES 13.3 %; LYMPHOCYTES ABSOLUTE 1.39 10/3/uL (0.67-4.30); MEAN CORPUS HGB CONC 33.8 g/dL (32.0-36.0); MEAN CORPUSCULAR HEMOGLOB 31.7 pg (26.0-34.0); MEAN CORPUSCULAR VOLUME 93.6 fL (80-100); MEAN PLATELET VOLUME 9.9 fL (9.2-13.0); MONOCYTES ABSOLUTE 0.52 10/3/uL (0.21-1.20); NEUTROPHILS 81.3 %; NEUTROPHILS ABSOLUTE 8.54 10/3/uL (2.02-8.40); PLATELET COUNT 307 10/3/uL (150-400); RBC DISTRIBUTION WIDTH 13.4 % (12.0-16.0); RED CELL COUNT 4.23 10/6/uL (4.0-5.6); WHITE BLOOD CELLS 10.5 10/3/uL (4.5-10.5)
[2017-04-14 04:53] LABS: MANUAL DIFF NO %
[2017-04-14 05:11] LABS: BUN (BLOOD UREA NITROGEN) 17 MG/DL (6-23); CALCIUM, SERUM 8.1 MG/DL (8.5-10.4); CHLORIDE, SERUM 113 MMOL/L (96-112); CK-MB 5.4 NG/ML; CO2 (CARBON DIOXIDE) 25 MMOL/L (24-34); CREATININE 0.89 MG/DL (0.55-1.02); GFR AFRICAN AMERICAN 79 ML/MIN (>=60); GFR NON AFRICAN AMERICAN 68 ML/MIN (>=60); POTASSIUM, SERUM 3.9 MMOL/L (3.5-5.3); SODIUM, SERUM 145 MMOL/L (135-148); TROPONIN I <0.02 NG/ML (<0.05)
[2017-04-14 05:12] LABS: ALBUMIN 2.8 G/DL (3.5-5.0); CKMB INDEX (NOT ORD) 0.9; CPK 570 U/L (0-200); GLUCOSE, SERUM 125 MG/DL (60-99); PHOSPHORUS, SERUM 1.5 MG/DL (2.5-4.5)
[2017-04-14 08:10] LABS: BE (BASE EXCESS) -5.2 MEQ/L (0 +/- 2.5); CARBOXYHEMOGLOBIN 0.4 % (0-3); HCO3 (ACTUAL BICARBONATE) 21.7 MEQ/L (23-27); HEMOBLOGIN CONTENT 14.1 G/DL (12-16); INSTRUMENT SERIAL # 11843; METHEMOGLOBIN 0.4 % (0-3); MODE CMV; O2 CONTENT 17.9 VOL% (18-24); OPERATOR ID 32214; PCO2 (CO2 TENSION) 47 MMHG (35-45); PO2 (O2 TENSION) 64 MMHG (79-93); SAMPLE Arterial; TIDAL VOLUME 500 ML; pH 7.28 (7.37-7.43)
[2017-04-14 14:53] LABS: BE (BASE EXCESS) -4.8 MEQ/L (0 +/- 2.5); CARBOXYHEMOGLOBIN 0.3 % (0-3); DEVICE HFNC; HCO3 (ACTUAL BICARBONATE) 20.8 MEQ/L (23-27); HEMOBLOGIN CONTENT 13.6 G/DL (12-16); INSTRUMENT SERIAL # 11843; METHEMOGLOBIN 0.4 % (0-3); O2 CONTENT 18.8 VOL% (18-24); OPERATOR ID 32214; PCO2 (CO2 TENSION) 40 MMHG (35-45); PO2 (O2 TENSION) 128 MMHG (79-93); SAMPLE Arterial; pH 7.33 (7.37-7.43)
[2017-04-15 04:46] LABS: BASOPHILS 0.3 %; BASOPHILS ABSOLUTE 0.03 10/3/uL (0.0-0.16); EOSINOPHILS 0.1 %; EOSINOPHILS ABSOLUTE 0.01 10/3/uL (0.0-0.53); HEMATOCRIT 38.8 % (36.0-48.0); HEMOGLOBIN 12.4 g/dL (12.0-16.0); IMMATURE GRANULOCYTES 0.3 %; IMMATURE GRANULOCYTES ABSOLUTE 0.03 10/3/uL (0.0-0.11); LYMPHOCYTES 16.3 %; LYMPHOCYTES ABSOLUTE 1.89 10/3/uL (0.67-4.30); MEAN CORPUSCULAR HEMOGLOB 30.7 pg (26.0-34.0); MEAN PLATELET VOLUME 10.1 fL (9.2-13.0); MONOCYTES 5.8 %; MONOCYTES ABSOLUTE 0.67 10/3/uL (0.21-1.20); NEUTROPHILS 77.2 %; NEUTROPHILS ABSOLUTE 8.94 10/3/uL (2.02-8.40); PLATELET COUNT 264 10/3/uL (150-400); RBC DISTRIBUTION WIDTH 13.9 % (12.0-16.0); RED CELL COUNT 4.04 10/6/uL (4.0-5.6); WHITE BLOOD CELLS 11.6 10/3/uL (4.5-10.5)
[2017-04-15 04:47] LABS: MANUAL DIFF NO %
[2017-04-15 04:47] LABS: CARBOXYHEMOGLOBIN 0.3 % (0-3); DEVICE VAPOTHERM 30L; HCO3 (ACTUAL BICARBONATE) 21.9 MEQ/L (23-27); HEMOBLOGIN CONTENT 13.5 G/DL (12-16); INSTRUMENT SERIAL # 11843; METHEMOGLOBIN 0.4 % (0-3); O2 CONTENT 17.6 VOL% (18-24); OPERATOR ID 32193; PCO2 (CO2 TENSION) 39 MMHG (35-45); PO2 (O2 TENSION) 68 MMHG (79-93); SAMPLE Arterial; pH 7.37 (7.37-7.43)
[2017-04-15 05:06] LABS: CALCIUM, SERUM 7.6 MG/DL (8.5-10.4); CHLORIDE, SERUM 115 MMOL/L (96-112); CO2 (CARBON DIOXIDE) 23 MMOL/L (24-34); CREATININE 0.78 MG/DL (0.55-1.02); GFR AFRICAN AMERICAN 92 ML/MIN (>=60); GFR NON AFRICAN AMERICAN 80 ML/MIN (>=60); PHOSPHORUS, SERUM 1.4 MG/DL (2.5-4.5); SODIUM, SERUM 144 MMOL/L (135-148)
[2017-04-15 05:07] LABS: BUN (BLOOD UREA NITROGEN) 10 MG/DL (6-23); GLUCOSE, SERUM 154 MG/DL (60-99)
[2017-04-15 07:54] LABS: BE (BASE EXCESS) -4.2 MEQ/L (0 +/- 2.5); INSTRUMENT SERIAL # 11843; METHEMOGLOBIN 0.4 % (0-3); MODE CMV; O2 CONTENT 19.4 VOL% (18-24); OPERATOR ID 18642; PCO2 (CO2 TENSION) 39 MMHG (35-45); PO2 (O2 TENSION) 125 MMHG (79-93); SAMPLE Arterial; pH 7.35 (7.37-7.43)
[2017-04-15 07:55] LABS: TIDAL VOLUME 500 ML
[2017-04-15 12:33] LABS: BE (BASE EXCESS) -6.2 MEQ/L (0 +/- 2.5); HCO3 (ACTUAL BICARBONATE) 18.3 MEQ/L (23-27); HEMOBLOGIN CONTENT 13.2 G/DL (12-16); INSTRUMENT SERIAL # 11843; METHEMOGLOBIN 0.5 % (0-3); O2 CONTENT 17.4 VOL% (18-24); OPERATOR ID 18642; PCO2 (CO2 TENSION) 33 MMHG (35-45); PO2 (O2 TENSION) 69 MMHG (79-93); SAMPLE Arterial; pH 7.36 (7.37-7.43)
[2017-04-15 12:34] LABS: TIDAL VOLUME 500 ML
[2017-04-15 12:56] LABS: POTASSIUM, SERUM 3.8 MMOL/L (3.5-5.3)
[2017-04-15 17:55] LABS: FREE T4 1.02 NG/DL (0.76-1.46); ULTRASENSITIVE TSH 0.619 MCIU/ML (0.358-3.740)
[2017-04-16 03:51] LABS: HEMATOCRIT 38.3 % (36.0-48.0); HEMOGLOBIN 12.1 g/dL (12.0-16.0); MEAN CORPUS HGB CONC 31.6 g/dL (32.0-36.0); MEAN CORPUSCULAR VOLUME 98.2 fL (80-100); MEAN PLATELET VOLUME 10.2 fL (9.2-13.0); PLATELET COUNT 269 10/3/uL (150-400); RBC DISTRIBUTION WIDTH 13.9 % (12.0-16.0)
[2017-04-16 03:55] LABS: MANUAL DIFF YES %
[2017-04-16 04:08] LABS: BUN (BLOOD UREA NITROGEN) 7 MG/DL (6-23); CALCIUM, SERUM 7.7 MG/DL (8.5-10.4); CHLORIDE, SERUM 115 MMOL/L (96-112); CO2 (CARBON DIOXIDE) 24 MMOL/L (24-34); CREATININE 1.06 MG/DL (0.55-1.02); GFR AFRICAN AMERICAN 64 ML/MIN (>=60); GFR NON AFRICAN AMERICAN 55 ML/MIN (>=60); POTASSIUM, SERUM 3.5 MMOL/L (3.5-5.3); SODIUM, SERUM 142 MMOL/L (135-148)
[2017-04-16 04:09] LABS: GLUCOSE, SERUM 267 MG/DL (60-99)
[2017-04-16 04:19] LABS: BAND NEUTROPHILS 10 %; IMMATURE GRANS ABSOLUTE (CALC) 0.36 10/3/uL (0.0-0.11); LYMPHOCYTES 10 %; METAMYELOCYTES 3 %; MONOCYTES 1 %; MONOCYTES ABSOLUTE (CALC) 0.12 10/3/uL (0.21-1.20); NEUTROPHILS ABSOLUTE (CALC) 10.32 10/3/uL (2.02-8.40); PLATELET ESTIMATE ADQ (ADEQUATE); RBC MORPHOLOGY NORM (NORMAL); SEGMENTED NEUTROPHIL (0) 76 %; TOTAL NUCLEATED CELLS 100
[2017-04-16 15:38] LABS: CREATININE, URINE 13.6 MG/DL
[2017-04-16 17:57] LABS: POTASSIUM, SERUM 3.3 MMOL/L (3.5-5.3)
[2017-04-17 03:42] LABS: MEAN CORPUS HGB CONC 32.5 g/dL (32.0-36.0); MEAN CORPUSCULAR HEMOGLOB 31.4 pg (26.0-34.0); MEAN CORPUSCULAR VOLUME 96.6 fL (80-100); MEAN PLATELET VOLUME 9.9 fL (9.2-13.0); PLATELET COUNT 258 10/3/uL (150-400); WHITE BLOOD CELLS 9.8 10/3/uL (4.5-10.5)
[2017-04-17 03:42] LABS: BE (BASE EXCESS) 1.3 MEQ/L (0 +/- 2.5); CARBOXYHEMOGLOBIN 0.3 % (0-3); HCO3 (ACTUAL BICARBONATE) 26.5 MEQ/L (23-27); HEMOBLOGIN CONTENT 11.9 G/DL (12-16); INSTRUMENT SERIAL # 11843; METHEMOGLOBIN 0.5 % (0-3); O2 CONTENT 16.1 VOL% (18-24); PCO2 (CO2 TENSION) 44 MMHG (35-45); PO2 (O2 TENSION) 85 MMHG (79-93)
[2017-04-17 03:43] LABS: ALLENS TEST Pos; MODE CMV; OPERATOR ID 23712; SAMPLE Arterial; TIDAL VOLUME 500 ML
[2017-04-17 03:45] LABS: HEMATOCRIT 33.8 % (36.0-48.0); MANUAL DIFF YES %
[2017-04-17 04:20] LABS: BUN (BLOOD UREA NITROGEN) 8 MG/DL (6-23); CALCIUM, SERUM 7.4 MG/DL (8.5-10.4); CHLORIDE, SERUM 114 MMOL/L (96-112); CO2 (CARBON DIOXIDE) 27 MMOL/L (24-34); CREATININE 0.86 MG/DL (0.55-1.02); GFR AFRICAN AMERICAN 82 ML/MIN (>=60); GFR NON AFRICAN AMERICAN 71 ML/MIN (>=60); PHOSPHORUS, SERUM 1.7 MG/DL (2.5-4.5); POTASSIUM, SERUM 3.5 MMOL/L (3.5-5.3); SGOT(AST) 24 U/L (5-40); SGPT(ALT) 22 U/L (5-65); SODIUM, SERUM 148 MMOL/L (135-148); TOTAL BILIRUBIN 0.4 MG/DL (0-1.2)
[2017-04-17 04:21] LABS: A/G RATIO 0.5 (0.7-1.9); ALBUMIN 1.9 G/DL (3.5-5.0); ALKALINE PHOSPHATASE 96 U/L (45-117); GLOBULIN 4.1 G/DL (2.5-4.1); GLUCOSE, SERUM 175 MG/DL (60-99)
[2017-04-17 06:01] LABS: BAND NEUTROPHILS 5 %; EOSINOPHILS 4 %; EOSINOPHILS ABSOLUTE (CALC) 0.39 10/3/uL (0.0-0.53); HYPOCHROMIA 1+ (3-10/OIF) (0-2/OIF); LYMPHOCYTES 9 %; LYMPHOCYTES ABSOLUTE (CALC) 0.88 10/3/uL (0.67-4.30); METAMYELOCYTES 1 %; MONOCYTES 8 %; MONOCYTES ABSOLUTE (CALC) 0.78 10/3/uL (0.21-1.20); NEUTROPHILS ABSOLUTE (CALC) 7.64 10/3/uL (2.02-8.40); PLATELET ESTIMATE ADQ (ADEQUATE); SEGMENTED NEUTROPHIL (0) 73 %; TOTAL NUCLEATED CELLS 100
[2017-04-17 06:41] LABS: PROCALCITONIN 2.77 ng/mL (<0.5)
[2017-04-17 23:55] LABS: BUN (BLOOD UREA NITROGEN) 9 MG/DL (6-23); CALCIUM, SERUM 7.9 MG/DL (8.5-10.4); CHLORIDE, SERUM 112 MMOL/L (96-112); CO2 (CARBON DIOXIDE) 28 MMOL/L (24-34); CREATININE 0.87 MG/DL (0.55-1.02); GFR AFRICAN AMERICAN 81 ML/MIN (>=60); GFR NON AFRICAN AMERICAN 70 ML/MIN (>=60); POTASSIUM, SERUM 3.5 MMOL/L (3.5-5.3); SODIUM, SERUM 147 MMOL/L (135-148)
[2017-04-17 23:56] LABS: GLUCOSE, SERUM 124 MG/DL (60-99)
[2017-04-18 04:23] LABS: HEMATOCRIT 33.9 % (36.0-48.0); HEMOGLOBIN 10.6 g/dL (12.0-16.0); MEAN CORPUS HGB CONC 31.3 g/dL (32.0-36.0); MEAN CORPUSCULAR HEMOGLOB 30.3 pg (26.0-34.0); MEAN CORPUSCULAR VOLUME 96.9 fL (80-100); MEAN PLATELET VOLUME 9.7 fL (9.2-13.0); PLATELET COUNT 243 10/3/uL (150-400); RBC DISTRIBUTION WIDTH 14.2 % (12.0-16.0)
[2017-04-18 04:24] LABS: MANUAL DIFF YES %
[2017-04-18 04:40] LABS: BUN (BLOOD UREA NITROGEN) 9 MG/DL (6-23); CALCIUM, SERUM 7.7 MG/DL (8.5-10.4); CHLORIDE, SERUM 112 MMOL/L (96-112); CO2 (CARBON DIOXIDE) 28 MMOL/L (24-34); CREATININE 0.76 MG/DL (0.55-1.02); GFR AFRICAN AMERICAN 95 ML/MIN (>=60); GFR NON AFRICAN AMERICAN 82 ML/MIN (>=60); GLUCOSE, SERUM 122 MG/DL (60-99); POTASSIUM, SERUM 3.8 MMOL/L (3.5-5.3); SODIUM, SERUM 148 MMOL/L (135-148)
[2017-04-18 06:37] LABS: BAND NEUTROPHILS 6 %; EOSINOPHILS 1 %; LYMPHOCYTES 17 %; METAMYELOCYTES 1 %; MONOCYTES 3 %; PLATELET ESTIMATE ADQ (ADEQUATE); RBC MORPHOLOGY NORM (NORMAL); SEGMENTED NEUTROPHIL (0) 72 %; TOTAL NUCLEATED CELLS 100
[2017-04-19 03:35] LABS: HEMATOCRIT 33.8 % (36.0-48.0); HEMOGLOBIN 10.8 g/dL (12.0-16.0); MEAN CORPUSCULAR HEMOGLOB 30.9 pg (26.0-34.0); MEAN CORPUSCULAR VOLUME 96.6 fL (80-100); MEAN PLATELET VOLUME 9.9 fL (9.2-13.0); NUCLEATED RED BLOOD CELLS 0.6 /100WBC (0-0); PLATELET COUNT 240 10/3/uL (150-400); RBC DISTRIBUTION WIDTH 14.3 % (12.0-16.0); WHITE BLOOD CELLS 10.4 10/3/uL (4.5-10.5)
[2017-04-19 03:41] LABS: MANUAL DIFF YES %
[2017-04-19 03:43] LABS: BUN (BLOOD UREA NITROGEN) 11 MG/DL (6-23); CALCIUM, SERUM 7.6 MG/DL (8.5-10.4); CHLORIDE, SERUM 109 MMOL/L (96-112); CO2 (CARBON DIOXIDE) 29 MMOL/L (24-34); CREATININE 0.86 MG/DL (0.55-1.02); GFR AFRICAN AMERICAN 82 ML/MIN (>=60); GFR NON AFRICAN AMERICAN 71 ML/MIN (>=60); GLUCOSE, SERUM 123 MG/DL (60-99); PHOSPHORUS, SERUM 3.9 MG/DL (2.5-4.5); SODIUM, SERUM 145 MMOL/L (135-148)
[2017-04-19 04:57] LABS: BAND NEUTROPHILS 2 %; BASOPHILS 1 %; EOSINOPHILS 1 %; IMMATURE GRANS ABSOLUTE (CALC) 0.73 10/3/uL (0.0-0.11); LYMPHOCYTES 18 %; LYMPHOCYTES ABSOLUTE (CALC) 1.87 10/3/uL (0.67-4.30); METAMYELOCYTES 4 %; MONOCYTES 4 %; MONOCYTES ABSOLUTE (CALC) 0.42 10/3/uL (0.21-1.20); MYELOCYTES 3 %; NEUTROPHILS ABSOLUTE (CALC) 6.97 10/3/uL (2.02-8.40); PLASMA CELL 2 % (0); SEGMENTED NEUTROPHIL (0) 65 %; TOTAL NUCLEATED CELLS 100
[2017-04-19 04:58] LABS: REACTIVE LYMPHS MOD (6-10%) (0-5%)
[2017-04-19 04:59] LABS: PLATELET ESTIMATE ADQ (ADEQUATE); RBC MORPHOLOGY NORM (NORMAL)
[2017-04-19 21:38] LABS: POTASSIUM, SERUM 3.6 MMOL/L (3.5-5.3)
[2017-04-20 04:03] LABS: HEMATOCRIT 33.9 % (36.0-48.0); HEMOGLOBIN 10.8 g/dL (12.0-16.0); MEAN CORPUS HGB CONC 31.9 g/dL (32.0-36.0); MEAN CORPUSCULAR HEMOGLOB 31.1 pg (26.0-34.0); MEAN CORPUSCULAR VOLUME 97.7 fL (80-100); MEAN PLATELET VOLUME 9.4 fL (9.2-13.0); PLATELET COUNT 280 10/3/uL (150-400); RBC DISTRIBUTION WIDTH 14.3 % (12.0-16.0); RED CELL COUNT 3.47 10/6/uL (4.0-5.6); WHITE BLOOD CELLS 11.9 10/3/uL (4.5-10.5)
[2017-04-20 04:06] LABS: MANUAL DIFF YES %
[2017-04-20 04:08] LABS: BUN (BLOOD UREA NITROGEN) 13 MG/DL (6-23); CALCIUM, SERUM 8.5 MG/DL (8.5-10.4); CHLORIDE, SERUM 107 MMOL/L (96-112); CO2 (CARBON DIOXIDE) 31 MMOL/L (24-34); CREATININE 0.91 MG/DL (0.55-1.02); GFR AFRICAN AMERICAN 77 ML/MIN (>=60); GFR NON AFRICAN AMERICAN 66 ML/MIN (>=60); GLUCOSE, SERUM 121 MG/DL (60-99); PHOSPHORUS, SERUM 3.5 MG/DL (2.5-4.5); POTASSIUM, SERUM 3.8 MMOL/L (3.5-5.3); SODIUM, SERUM 143 MMOL/L (135-148)
[2017-04-20 05:41] LABS: PROCALCITONIN 0.82 ng/mL (<0.5)
[2017-04-20 06:30] LABS: BAND NEUTROPHILS 5 %; EOSINOPHILS 2 %; EOSINOPHILS ABSOLUTE (CALC) 0.24 10/3/uL (0.0-0.53); IMMATURE GRANS ABSOLUTE (CALC) 1.55 10/3/uL (0.0-0.11); LYMPHOCYTES 18 %; LYMPHOCYTES ABSOLUTE (CALC) 2.14 10/3/uL (0.67-4.30); METAMYELOCYTES 13 %; NEUTROPHILS ABSOLUTE (CALC) 7.97 10/3/uL (2.02-8.40); PLATELET ESTIMATE ADQ (ADEQUATE); SEGMENTED NEUTROPHIL (0) 62 %; TOTAL NUCLEATED CELLS 100
[2017-04-20 06:31] LABS: RBC MORPHOLOGY NORM (NORMAL)
[2017-04-20 18:36] LABS: ASCORBIC ACID (UR NOT ORDER) 40 (NEG); BILIRUBIN, URINE NEGATIVE (NEG); KETONE, URINE 20 MG/DL (NEG); LEUKOCYTE ESTERASE(NOT OR NEG (NEG); WBC (NOT ORDERED) (RFLEX) 1 (0-5)
[2017-04-21 04:47] LABS: HEMATOCRIT 32.7 % (36.0-48.0); HEMOGLOBIN 10.2 g/dL (12.0-16.0); MEAN CORPUS HGB CONC 31.2 g/dL (32.0-36.0); MEAN CORPUSCULAR HEMOGLOB 30.1 pg (26.0-34.0); MEAN CORPUSCULAR VOLUME 96.5 fL (80-100); MEAN PLATELET VOLUME 9.4 fL (9.2-13.0); NUCLEATED RED BLOOD CELLS 0.4 /100WBC (0-0); PLATELET COUNT 286 10/3/uL (150-400); RBC DISTRIBUTION WIDTH 14.4 % (12.0-16.0); RED CELL COUNT 3.39 10/6/uL (4.0-5.6); WHITE BLOOD CELLS 11.1 10/3/uL (4.5-10.5)
[2017-04-21 04:52] LABS: MANUAL DIFF YES %
[2017-04-21 04:57] LABS: CALCIUM, SERUM 8.4 MG/DL (8.5-10.4); CHLORIDE, SERUM 105 MMOL/L (96-112); CO2 (CARBON DIOXIDE) 28 MMOL/L (24-34); CREATININE 0.88 MG/DL (0.55-1.02); GFR AFRICAN AMERICAN 80 ML/MIN (>=60); GFR NON AFRICAN AMERICAN 69 ML/MIN (>=60); POTASSIUM, SERUM 3.9 MMOL/L (3.5-5.3); SODIUM, SERUM 140 MMOL/L (135-148)
[2017-04-21 04:58] LABS: BUN (BLOOD UREA NITROGEN) 19 MG/DL (6-23); GLUCOSE, SERUM 154 MG/DL (60-99)
[2017-04-21 05:16] LABS: BAND NEUTROPHILS 6 %; BASOPHILS 1 %; BASOPHILS ABSOLUTE (CALC) 0.11 10/3/uL (0.0-0.16); EOSINOPHILS 5 %; EOSINOPHILS ABSOLUTE (CALC) 0.56 10/3/uL (0.0-0.53); IMMATURE GRANS ABSOLUTE (CALC) 0.67 10/3/uL (0.0-0.11); LYMPHOCYTES 11 %; LYMPHOCYTES ABSOLUTE (CALC) 1.22 10/3/uL (0.67-4.30); METAMYELOCYTES 4 %; MYELOCYTES 2 %; NEUTROPHILS ABSOLUTE (CALC) 8.55 10/3/uL (2.02-8.40); SEGMENTED NEUTROPHIL (0) 71 %; TOTAL NUCLEATED CELLS 100
[2017-04-21 05:17] LABS: PLATELET ESTIMATE ADQ (ADEQUATE); RBC MORPHOLOGY NORM (NORMAL)
[2017-04-21 05:38] LABS: PREALBUMIN 8.4 MG/DL (17.0-43.0); TRIGLYCERIDE 366 MG/DL (< 150)
[2017-04-21 11:03] LABS: PHOSPHORUS, SERUM 3.7 MG/DL (2.5-4.5)
[2017-04-21 12:46] LABS: ALLENS TEST Pos; BE (BASE EXCESS) 0.5 MEQ/L (0 +/- 2.5); BIPAP 14/5 cm.H2O; CARBOXYHEMOGLOBIN 0.6 % (0-3); HEMOBLOGIN CONTENT 13.2 G/DL (12-16); INSTRUMENT SERIAL # 11843; METHEMOGLOBIN 0.5 % (0-3); O2 CONTENT 18.1 VOL% (18-24); OPERATOR ID 14947; PCO2 (CO2 TENSION) 35 MMHG (35-45); PO2 (O2 TENSION) 113 MMHG (79-93); SAMPLE Arterial; pH 7.46 (7.37-7.43)
[2017-04-22 06:51] LABS: ALBUMIN 2.2 G/DL (3.5-5.0); BUN (BLOOD UREA NITROGEN) 22 MG/DL (6-23); CHLORIDE, SERUM 106 MMOL/L (96-112); CO2 (CARBON DIOXIDE) 26 MMOL/L (24-34); CREATININE 0.79 MG/DL (0.55-1.02); GFR AFRICAN AMERICAN 91 ML/MIN (>=60); GFR NON AFRICAN AMERICAN 79 ML/MIN (>=60); POTASSIUM, SERUM 3.6 MMOL/L (3.5-5.3); SODIUM, SERUM 140 MMOL/L (135-148)
[2017-04-22 06:52] LABS: CALCIUM, SERUM 9.4 MG/DL (8.5-10.4); GLUCOSE, SERUM 280 MG/DL (60-99); PHOSPHORUS, SERUM 2.4 MG/DL (2.5-4.5)
[2017-04-22 07:56] LABS: MEAN CORPUS HGB CONC 32.4 g/dL (32.0-36.0); MEAN CORPUSCULAR VOLUME 95.6 fL (80-100); MEAN PLATELET VOLUME 9.7 fL (9.2-13.0); PLATELET COUNT 364 10/3/uL (150-400); RBC DISTRIBUTION WIDTH 14.2 % (12.0-16.0)
[2017-04-22 07:57] LABS: HEMATOCRIT 39.5 % (36.0-48.0); HEMOGLOBIN 12.8 g/dL (12.0-16.0); MANUAL DIFF YES %; RED CELL COUNT 4.13 10/6/uL (4.0-5.6)
[2017-04-22 08:19] LABS: BAND NEUTROPHILS 4 %; LYMPHOCYTES 16 %; LYMPHOCYTES ABSOLUTE (CALC) 2.56 10/3/uL (0.67-4.30); MONOCYTES 4 %; MONOCYTES ABSOLUTE (CALC) 0.64 10/3/uL (0.21-1.20); SEGMENTED NEUTROPHIL (0) 76 %; TOTAL NUCLEATED CELLS 100
[2017-04-22 08:20] LABS: PLATELET ESTIMATE ADQ (ADEQUATE); RBC MORPHOLOGY NORM (NORMAL)
[2017-04-22 11:43] LABS: ASCORBIC ACID (UR NOT ORDER) NEG (NEG); BILIRUBIN, URINE NEGATIVE (NEG); KETONE, URINE NEGATIVE (NEG); LEUKOCYTE ESTERASE(NOT OR NEG (NEG); WBC (NOT ORDERED) (RFLEX) 1 (0-5)
[2017-04-23 04:32] LABS: CALCIUM, SERUM 9.4 MG/DL (8.5-10.4); CHLORIDE, SERUM 111 MMOL/L (96-112); CO2 (CARBON DIOXIDE) 30 MMOL/L (24-34); CREATININE 1.02 MG/DL (0.55-1.02); GFR AFRICAN AMERICAN 67 ML/MIN (>=60); GFR NON AFRICAN AMERICAN 58 ML/MIN (>=60); GLUCOSE, SERUM 236 MG/DL (60-99); PHOSPHORUS, SERUM 2.5 MG/DL (2.5-4.5)
[2017-04-23 04:33] LABS: SODIUM, SERUM 147 MMOL/L (135-148)
[2017-04-23 04:34] LABS: ALBUMIN 2.8 G/DL (3.5-5.0); BUN (BLOOD UREA NITROGEN) 30 MG/DL (6-23); HEMATOCRIT 38.6 % (36.0-48.0); HEMOGLOBIN 12.4 g/dL (12.0-16.0); MEAN CORPUS HGB CONC 32.1 g/dL (32.0-36.0); MEAN CORPUSCULAR HEMOGLOB 31.1 pg (26.0-34.0); MEAN CORPUSCULAR VOLUME 96.7 fL (80-100); MEAN PLATELET VOLUME 9.8 fL (9.2-13.0); NUCLEATED RED BLOOD CELLS 0.3 /100WBC (0-0); PLATELET COUNT 386 10/3/uL (150-400); POTASSIUM, SERUM 4.1 MMOL/L (3.5-5.3); RBC DISTRIBUTION WIDTH 14.1 % (12.0-16.0); RED CELL COUNT 3.99 10/6/uL (4.0-5.6); WHITE BLOOD CELLS 12.7 10/3/uL (4.5-10.5)
[2017-04-23 04:36] LABS: MANUAL DIFF YES %
[2017-04-23 05:37] LABS: BAND NEUTROPHILS 4 %; BASOPHILS 1 %; BASOPHILS ABSOLUTE (CALC) 0.13 10/3/uL (0.0-0.16); EOSINOPHILS 2 %; EOSINOPHILS ABSOLUTE (CALC) 0.25 10/3/uL (0.0-0.53); IMMATURE GRANS ABSOLUTE (CALC) 0.38 10/3/uL (0.0-0.11); LYMPHOCYTES 8 %; LYMPHOCYTES ABSOLUTE (CALC) 1.02 10/3/uL (0.67-4.30); METAMYELOCYTES 3 %; MONOCYTES 4 %; MONOCYTES ABSOLUTE (CALC) 0.51 10/3/uL (0.21-1.20); NEUTROPHILS ABSOLUTE (CALC) 10.41 10/3/uL (2.02-8.40); PLATELET ESTIMATE ADQ (ADEQUATE); SEGMENTED NEUTROPHIL (0) 78 %; TOTAL NUCLEATED CELLS 100
[2017-04-24 04:05] LABS: CHLORIDE, SERUM 118 MMOL/L (96-112); CO2 (CARBON DIOXIDE) 27 MMOL/L (24-34); CREATININE 0.96 MG/DL (0.55-1.02); GFR AFRICAN AMERICAN 72 ML/MIN (>=60); GFR NON AFRICAN AMERICAN 62 ML/MIN (>=60); GLUCOSE, SERUM 238 MG/DL (60-99); POTASSIUM, SERUM 3.8 MMOL/L (3.5-5.3); SODIUM, SERUM 151 MMOL/L (135-148)
[2017-04-24 04:08] LABS: BUN (BLOOD UREA NITROGEN) 34 MG/DL (6-23); PHOSPHORUS, SERUM 3.5 MG/DL (2.5-4.5)
[2017-04-26 07:20] LABS: BASOPHILS 0.6 %; BASOPHILS ABSOLUTE 0.07 10/3/uL (0.0-0.16); EOSINOPHILS 4.9 %; HEMATOCRIT 38.4 % (36.0-48.0); HEMOGLOBIN 11.6 g/dL (12.0-16.0); IMMATURE GRANULOCYTES 1.6 %; LYMPHOCYTES 25.1 %; LYMPHOCYTES ABSOLUTE 3.08 10/3/uL (0.67-4.30); MEAN CORPUSCULAR HEMOGLOB 30.3 pg (26.0-34.0); MEAN PLATELET VOLUME 10.3 fL (9.2-13.0); MONOCYTES 5.7 %; NEUTROPHILS 62.1 %; PLATELET COUNT 378 10/3/uL (150-400); RBC DISTRIBUTION WIDTH 14.6 % (12.0-16.0); RED CELL COUNT 3.83 10/6/uL (4.0-5.6); WHITE BLOOD CELLS 12.3 10/3/uL (4.5-10.5)
[2017-04-26 07:33] LABS: BUN (BLOOD UREA NITROGEN) 31 MG/DL (6-23); CALCIUM, SERUM 8.8 MG/DL (8.5-10.4); CHLORIDE, SERUM 119 MMOL/L (96-112); CO2 (CARBON DIOXIDE) 28 MMOL/L (24-34); CREATININE 1.12 MG/DL (0.55-1.02); GFR AFRICAN AMERICAN 60 ML/MIN (>=60); GFR NON AFRICAN AMERICAN 52 ML/MIN (>=60); GLUCOSE, SERUM 226 MG/DL (60-99); POTASSIUM, SERUM 3.4 MMOL/L (3.5-5.3); SODIUM, SERUM 153 MMOL/L (135-148)
[2017-04-26 07:53] LABS: MEAN CORPUSCULAR VOLUME 100.3 fL (80-100)
[2017-04-26 07:54] LABS: MEAN CORPUS HGB CONC 30.2 g/dL (32.0-36.0)
[2017-04-26 07:55] LABS: MANUAL DIFF NO %
[2017-04-27 05:35] LABS: BUN (BLOOD UREA NITROGEN) 28 MG/DL (6-23); CALCIUM, SERUM 8.7 MG/DL (8.5-10.4); CHLORIDE, SERUM 120 MMOL/L (96-112); CO2 (CARBON DIOXIDE) 27 MMOL/L (24-34); CREATININE 1.11 MG/DL (0.55-1.02); GFR AFRICAN AMERICAN 60 ML/MIN (>=60); GFR NON AFRICAN AMERICAN 52 ML/MIN (>=60); POTASSIUM, SERUM 3.6 MMOL/L (3.5-5.3); SODIUM, SERUM 155 MMOL/L (135-148)
[2017-04-27 05:36] LABS: GLUCOSE, SERUM 116 MG/DL (60-99)
[2017-04-27 18:18] LABS: BUN (BLOOD UREA NITROGEN) 24 MG/DL (6-23); CALCIUM, SERUM 8.3 MG/DL (8.5-10.4); CHLORIDE, SERUM 118 MMOL/L (96-112); CO2 (CARBON DIOXIDE) 28 MMOL/L (24-34); CREATININE 1.02 MG/DL (0.55-1.02); GFR AFRICAN AMERICAN 67 ML/MIN (>=60); GFR NON AFRICAN AMERICAN 58 ML/MIN (>=60); GLUCOSE, SERUM 255 MG/DL (60-99); POTASSIUM, SERUM 3.8 MMOL/L (3.5-5.3); SODIUM, SERUM 152 MMOL/L (135-148)
[2017-04-28 06:02] LABS: BUN (BLOOD UREA NITROGEN) 22 MG/DL (6-23); CALCIUM, SERUM 8.5 MG/DL (8.5-10.4); CHLORIDE, SERUM 118 MMOL/L (96-112); CO2 (CARBON DIOXIDE) 29 MMOL/L (24-34); CREATININE 0.93 MG/DL (0.55-1.02); GFR AFRICAN AMERICAN 75 ML/MIN (>=60); GFR NON AFRICAN AMERICAN 64 ML/MIN (>=60); POTASSIUM, SERUM 3.1 MMOL/L (3.5-5.3); SODIUM, SERUM 154 MMOL/L (135-148)
[2017-04-28 06:03] LABS: GLUCOSE, SERUM 73 MG/DL (60-99)
[2017-04-29 03:55] LABS: BASOPHILS 1.2 %; BASOPHILS ABSOLUTE 0.11 10/3/uL (0.0-0.16); EOSINOPHILS 4.3 %; EOSINOPHILS ABSOLUTE 0.39 10/3/uL (0.0-0.53); HEMOGLOBIN 10.8 g/dL (12.0-16.0); IMMATURE GRANULOCYTES 0.8 %; IMMATURE GRANULOCYTES ABSOLUTE 0.07 10/3/uL (0.0-0.11); LYMPHOCYTES 25.9 %; LYMPHOCYTES ABSOLUTE 2.36 10/3/uL (0.67-4.30); MEAN CORPUS HGB CONC 30.9 g/dL (32.0-36.0); MEAN CORPUSCULAR HEMOGLOB 30.7 pg (26.0-34.0); MEAN CORPUSCULAR VOLUME 99.4 fL (80-100); MEAN PLATELET VOLUME 10.7 fL (9.2-13.0); MONOCYTES 5.7 %; MONOCYTES ABSOLUTE 0.52 10/3/uL (0.21-1.20); NEUTROPHILS 62.1 %; NEUTROPHILS ABSOLUTE 5.65 10/3/uL (2.02-8.40); PLATELET COUNT 409 10/3/uL (150-400); RBC DISTRIBUTION WIDTH 14.3 % (12.0-16.0); RED CELL COUNT 3.52 10/6/uL (4.0-5.6); WHITE BLOOD CELLS 9.1 10/3/uL (4.5-10.5)
[2017-04-29 03:56] LABS: MANUAL DIFF NO %
[2017-04-29 04:02] LABS: INTERNATIONAL NORMAL RATI 1.1 UNITS (-); PROTIME (NOT ORD) 14.4 SEC (12.0-14.5)
[2017-04-29 04:32] LABS: BUN (BLOOD UREA NITROGEN) 21 MG/DL (6-23); CALCIUM, SERUM 8.2 MG/DL (8.5-10.4); CHLORIDE, SERUM 115 MMOL/L (96-112); CO2 (CARBON DIOXIDE) 26 MMOL/L (24-34); CREATININE 0.99 MG/DL (0.55-1.02); GFR AFRICAN AMERICAN 69 ML/MIN (>=60); GFR NON AFRICAN AMERICAN 60 ML/MIN (>=60); GLUCOSE, SERUM 95 MG/DL (60-99); SODIUM, SERUM 148 MMOL/L (135-148)
[2017-04-30 06:21] LABS: BASOPHILS 0.7 %; BASOPHILS ABSOLUTE 0.07 10/3/uL (0.0-0.16); EOSINOPHILS 2.8 %; EOSINOPHILS ABSOLUTE 0.27 10/3/uL (0.0-0.53); HEMATOCRIT 33.2 % (36.0-48.0); HEMOGLOBIN 10.2 g/dL (12.0-16.0); LYMPHOCYTES 17.8 %; MEAN CORPUS HGB CONC 30.7 g/dL (32.0-36.0); MEAN CORPUSCULAR HEMOGLOB 30.5 pg (26.0-34.0); MEAN CORPUSCULAR VOLUME 99.4 fL (80-100); MEAN PLATELET VOLUME 10.8 fL (9.2-13.0); MONOCYTES 6.9 %; MONOCYTES ABSOLUTE 0.66 10/3/uL (0.21-1.20); NEUTROPHILS 70.8 %; NEUTROPHILS ABSOLUTE 6.75 10/3/uL (2.02-8.40); PLATELET COUNT 420 10/3/uL (150-400); RBC DISTRIBUTION WIDTH 14.4 % (12.0-16.0); RED CELL COUNT 3.34 10/6/uL (4.0-5.6); WHITE BLOOD CELLS 9.6 10/3/uL (4.5-10.5)
[2017-04-30 06:22] LABS: MANUAL DIFF NO %
[2017-04-30 06:39] LABS: A/G RATIO 0.5 (0.7-1.9); ALBUMIN 2.3 G/DL (3.5-5.0); BUN (BLOOD UREA NITROGEN) 18 MG/DL (6-23); CALCIUM, SERUM 8.3 MG/DL (8.5-10.4); CHLORIDE, SERUM 113 MMOL/L (96-112); CO2 (CARBON DIOXIDE) 24 MMOL/L (24-34); CREATININE 0.87 MG/DL (0.55-1.02); GFR AFRICAN AMERICAN 81 ML/MIN (>=60); GFR NON AFRICAN AMERICAN 70 ML/MIN (>=60); GLOBULIN 4.6 G/DL (2.5-4.1); POTASSIUM, SERUM 4.4 MMOL/L (3.5-5.3); SGOT(AST) 20 U/L (5-40); SGPT(ALT) 23 U/L (5-65); SODIUM, SERUM 146 MMOL/L (135-148); TOTAL BILIRUBIN 0.8 MG/DL (0-1.2); TOTAL PROTEIN 6.9 G/DL (6.0-8.5)
[2017-04-30 06:41] LABS: ALKALINE PHOSPHATASE 143 U/L (45-117); GLUCOSE, SERUM 164 MG/DL (60-99)
[2017-05-01 05:28] LABS: BASOPHILS 0.9 %; BASOPHILS ABSOLUTE 0.08 10/3/uL (0.0-0.16); EOSINOPHILS 4.4 %; EOSINOPHILS ABSOLUTE 0.37 10/3/uL (0.0-0.53); HEMATOCRIT 35.1 % (36.0-48.0); HEMOGLOBIN 10.9 g/dL (12.0-16.0); IMMATURE GRANULOCYTES 0.9 %; IMMATURE GRANULOCYTES ABSOLUTE 0.08 10/3/uL (0.0-0.11); LYMPHOCYTES 25.6 %; LYMPHOCYTES ABSOLUTE 2.17 10/3/uL (0.67-4.30); MEAN CORPUS HGB CONC 31.1 g/dL (32.0-36.0); MEAN CORPUSCULAR HEMOGLOB 30.7 pg (26.0-34.0); MEAN CORPUSCULAR VOLUME 98.9 fL (80-100); MEAN PLATELET VOLUME 10.7 fL (9.2-13.0); MONOCYTES 7.1 %; NEUTROPHILS 61.1 %; NEUTROPHILS ABSOLUTE 5.19 10/3/uL (2.02-8.40); PLATELET COUNT 457 10/3/uL (150-400); RBC DISTRIBUTION WIDTH 14.4 % (12.0-16.0); RED CELL COUNT 3.55 10/6/uL (4.0-5.6); WHITE BLOOD CELLS 8.5 10/3/uL (4.5-10.5)
[2017-05-01 05:35] LABS: MANUAL DIFF NO %
[2017-05-01 05:46] LABS: A/G RATIO 0.5 (0.7-1.9); ALBUMIN 2.4 G/DL (3.5-5.0); ALKALINE PHOSPHATASE 146 U/L (45-117); BUN (BLOOD UREA NITROGEN) 17 MG/DL (6-23); CALCIUM, SERUM 8.6 MG/DL (8.5-10.4); CHLORIDE, SERUM 111 MMOL/L (96-112); CO2 (CARBON DIOXIDE) 25 MMOL/L (24-34); CREATININE 0.87 MG/DL (0.55-1.02); GFR AFRICAN AMERICAN 81 ML/MIN (>=60); GFR NON AFRICAN AMERICAN 70 ML/MIN (>=60); GLOBULIN 4.8 G/DL (2.5-4.1); GLUCOSE, SERUM 183 MG/DL (60-99); POTASSIUM, SERUM 3.8 MMOL/L (3.5-5.3); SGOT(AST) 18 U/L (5-40); SGPT(ALT) 21 U/L (5-65); SODIUM, SERUM 145 MMOL/L (135-148); TOTAL BILIRUBIN 0.5 MG/DL (0-1.2); TOTAL PROTEIN 7.2 G/DL (6.0-8.5)
[2017-05-02 05:12] LABS: BASOPHILS 0.8 %; BASOPHILS ABSOLUTE 0.07 10/3/uL (0.0-0.16); EOSINOPHILS ABSOLUTE 0.43 10/3/uL (0.0-0.53); HEMATOCRIT 34.7 % (36.0-48.0); HEMOGLOBIN 10.7 g/dL (12.0-16.0); IMMATURE GRANULOCYTES ABSOLUTE 0.09 10/3/uL (0.0-0.11); LYMPHOCYTES 28.7 %; LYMPHOCYTES ABSOLUTE 2.46 10/3/uL (0.67-4.30); MEAN CORPUS HGB CONC 30.8 g/dL (32.0-36.0); MEAN CORPUSCULAR HEMOGLOB 30.6 pg (26.0-34.0); MEAN CORPUSCULAR VOLUME 99.1 fL (80-100); MEAN PLATELET VOLUME 10.4 fL (9.2-13.0); MONOCYTES 10.1 %; MONOCYTES ABSOLUTE 0.87 10/3/uL (0.21-1.20); NEUTROPHILS 54.4 %; NEUTROPHILS ABSOLUTE 4.66 10/3/uL (2.02-8.40); PLATELET COUNT 439 10/3/uL (150-400); RBC DISTRIBUTION WIDTH 14.5 % (12.0-16.0); WHITE BLOOD CELLS 8.6 10/3/uL (4.5-10.5)
[2017-05-02 05:16] LABS: MANUAL DIFF NO %
[2017-05-02 05:28] LABS: A/G RATIO 0.5 (0.7-1.9); ALBUMIN 2.4 G/DL (3.5-5.0); ALKALINE PHOSPHATASE 148 U/L (45-117); BUN (BLOOD UREA NITROGEN) 17 MG/DL (6-23); CALCIUM, SERUM 8.5 MG/DL (8.5-10.4); CHLORIDE, SERUM 109 MMOL/L (96-112); CO2 (CARBON DIOXIDE) 29 MMOL/L (24-34); CREATININE 1.02 MG/DL (0.55-1.02); GFR AFRICAN AMERICAN 67 ML/MIN (>=60); GFR NON AFRICAN AMERICAN 58 ML/MIN (>=60); GLOBULIN 4.9 G/DL (2.5-4.1); GLUCOSE, SERUM 169 MG/DL (60-99); POTASSIUM, SERUM 3.7 MMOL/L (3.5-5.3); SGOT(AST) 21 U/L (5-40); SGPT(ALT) 22 U/L (5-65); SODIUM, SERUM 143 MMOL/L (135-148); TOTAL BILIRUBIN 0.3 MG/DL (0-1.2); TOTAL PROTEIN 7.3 G/DL (6.0-8.5)
[2017-05-03 05:20] LABS: BASOPHILS 0.9 %; BASOPHILS ABSOLUTE 0.07 10/3/uL (0.0-0.16); EOSINOPHILS 4.5 %; EOSINOPHILS ABSOLUTE 0.36 10/3/uL (0.0-0.53); HEMATOCRIT 32.8 % (36.0-48.0); HEMOGLOBIN 10.3 g/dL (12.0-16.0); IMMATURE GRANULOCYTES 0.9 %; IMMATURE GRANULOCYTES ABSOLUTE 0.07 10/3/uL (0.0-0.11); LYMPHOCYTES 24.2 %; LYMPHOCYTES ABSOLUTE 1.92 10/3/uL (0.67-4.30); MEAN CORPUS HGB CONC 31.4 g/dL (32.0-36.0); MEAN CORPUSCULAR HEMOGLOB 30.3 pg (26.0-34.0); MEAN CORPUSCULAR VOLUME 96.5 fL (80-100); MEAN PLATELET VOLUME 10.4 fL (9.2-13.0); MONOCYTES 8.4 %; MONOCYTES ABSOLUTE 0.67 10/3/uL (0.21-1.20); NEUTROPHILS 61.1 %; NEUTROPHILS ABSOLUTE 4.86 10/3/uL (2.02-8.40); PLATELET COUNT 481 10/3/uL (150-400); RBC DISTRIBUTION WIDTH 14.4 % (12.0-16.0)
[2017-05-03 05:22] LABS: MANUAL DIFF NO %
[2017-05-03 05:29] LABS: A/G RATIO 0.5 (0.7-1.9); ALBUMIN 2.3 G/DL (3.5-5.0); ALKALINE PHOSPHATASE 144 U/L (45-117); CALCIUM, SERUM 8.3 MG/DL (8.5-10.4); CHLORIDE, SERUM 105 MMOL/L (96-112); CO2 (CARBON DIOXIDE) 26 MMOL/L (24-34); CREATININE 0.68 MG/DL (0.55-1.02); GFR AFRICAN AMERICAN 106 ML/MIN (>=60); GFR NON AFRICAN AMERICAN 92 ML/MIN (>=60); GLOBULIN 4.6 G/DL (2.5-4.1); GLUCOSE, SERUM 184 MG/DL (60-99); POTASSIUM, SERUM 3.5 MMOL/L (3.5-5.3); SGOT(AST) 16 U/L (5-40); SGPT(ALT) 21 U/L (5-65); SODIUM, SERUM 139 MMOL/L (135-148); TOTAL BILIRUBIN 0.3 MG/DL (0-1.2); TOTAL PROTEIN 6.9 G/DL (6.0-8.5)
[2017-05-03 05:30] LABS: BUN (BLOOD UREA NITROGEN) 13 MG/DL (6-23)
[2017-05-04 06:15] LABS: BASOPHILS 0.6 %; BASOPHILS ABSOLUTE 0.06 10/3/uL (0.0-0.16); EOSINOPHILS 4.8 %; EOSINOPHILS ABSOLUTE 0.47 10/3/uL (0.0-0.53); HEMATOCRIT 33.3 % (36.0-48.0); HEMOGLOBIN 10.5 g/dL (12.0-16.0); IMMATURE GRANULOCYTES 0.9 %; IMMATURE GRANULOCYTES ABSOLUTE 0.09 10/3/uL (0.0-0.11); LYMPHOCYTES 29.1 %; LYMPHOCYTES ABSOLUTE 2.87 10/3/uL (0.67-4.30); MEAN CORPUS HGB CONC 31.5 g/dL (32.0-36.0); MEAN CORPUSCULAR HEMOGLOB 30.3 pg (26.0-34.0); MEAN CORPUSCULAR VOLUME 96.2 fL (80-100); MEAN PLATELET VOLUME 10.5 fL (9.2-13.0); MONOCYTES 6.7 %; MONOCYTES ABSOLUTE 0.66 10/3/uL (0.21-1.20); NEUTROPHILS 57.9 %; NEUTROPHILS ABSOLUTE 5.71 10/3/uL (2.02-8.40); PLATELET COUNT 476 10/3/uL (150-400); RBC DISTRIBUTION WIDTH 14.6 % (12.0-16.0); RED CELL COUNT 3.46 10/6/uL (4.0-5.6); WHITE BLOOD CELLS 9.9 10/3/uL (4.5-10.5)
[2017-05-04 06:19] LABS: MANUAL DIFF NO %
[2017-05-04 06:32] LABS: A/G RATIO 0.5 (0.7-1.9); ALBUMIN 2.4 G/DL (3.5-5.0); ALKALINE PHOSPHATASE 147 U/L (45-117); BUN (BLOOD UREA NITROGEN) 13 MG/DL (6-23); CALCIUM, SERUM 8.7 MG/DL (8.5-10.4); CHLORIDE, SERUM 102 MMOL/L (96-112); CO2 (CARBON DIOXIDE) 26 MMOL/L (24-34); CREATININE 0.73 MG/DL (0.55-1.02); GFR AFRICAN AMERICAN 100 ML/MIN (>=60); GFR NON AFRICAN AMERICAN 86 ML/MIN (>=60); GLOBULIN 4.7 G/DL (2.5-4.1); GLUCOSE, SERUM 166 MG/DL (60-99); POTASSIUM, SERUM 3.8 MMOL/L (3.5-5.3); SGOT(AST) 21 U/L (5-40); SGPT(ALT) 18 U/L (5-65); SODIUM, SERUM 137 MMOL/L (135-148); TOTAL BILIRUBIN 0.2 MG/DL (0-1.2); TOTAL PROTEIN 7.1 G/DL (6.0-8.5)
[2017-05-04] MEDS ORDERED: CORDARONE PEG (12:33)
[2017-05-04] MEDS ORDERED: LOP25 PEG (12:34)
[2017-05-04] MEDS ORDERED: GLUCPH PEG (12:36)
[2017-05-06] MEDS ORDERED: NORCO1 TA1 PEG (16:21)
[2017-05-06] MEDS ORDERED: ASCORBIC ACID PO (16:21)
[2017-05-06] MEDS ORDERED: [UNRECOGNIZED DRUG - OTHER] PO (16:21)
== END 2017-05-04 16:39 | disposition home health service (06) | DRG 326 ==
LOC: 5NO 13:38 → CVICU 18:39 → 5NO 04-24 16:28
PROVIDERS: Hospitalist; Internal Medicine; Internal Medicine Critical Care Medicine; Internal Medicine Pulmonary Disease; Surgery; Thoracic Surgery (Cardiothoracic Vascular Surgery)
PROC: 0DC Gastrointestinal System, Extirpation (ICD-10-PCS; principal; 2017-04-13 17:15)
PROC: 0DQ54ZZ Repair Esophagus, Percutaneous Endoscopic Approach (ICD-10-PCS; 2017-04-13 17:15)
PROC: 5A1945Z Respiratory Ventilation, 24-96 Consecutive Hours (ICD-10-PCS; 2017-04-15)
PROC: 0BH17EZ Insertion of Endotracheal Airway into Trachea, Via Natural or Artificial Opening (ICD-10-PCS; 2017-04-15)
PROC: 02HV33Z Insertion of Infusion Device into Superior Vena Cava, Percutaneous Approach (ICD-10-PCS; 2017-04-20)
PROC: 4A02X4A Measurement of Cardiac Electrical Activity, Guidance, External Approach (ICD-10-PCS; 2017-04-20)
PROC: 0DHA3UZ Insertion of Feeding Device into Jejunum, Percutaneous Approach (ICD-10-PCS; 2017-04-29)
PROC: 3E0H76Z Introduction of Nutritional Substance into Lower GI, Via Natural or Artificial Opening (ICD-10-PCS; 2017-04-29)
DX: K22.3 Perforation of esophagus (principal); A41.9 Sepsis, unspecified organism; R65.21 Severe sepsis with septic shock; J95.821 Acute postprocedural respiratory failure; N17.9 Acute kidney failure, unspecified; I47.1 Supraventricular tachycardia; S11.2 Open wound of pharynx and cervical esophagus; J44.9 Chronic obstructive pulmonary disease, unspecified; I10 Essential (primary) hypertension; G47.33 Obstructive sleep apnea (adult) (pediatric); J45.909 Unspecified asthma, uncomplicated; Z82.49 Family history of ischemic heart disease and other diseases of the circulatory system; Z88.5 Allergy status to narcotic agent; Z79.899 Other long term (current) drug therapy; Z79.82 Long term (current) use of aspirin; R41.0 Disorientation, unspecified; E11.9 Type 2 diabetes mellitus without complications; K21.9 Gastro-esophageal reflux disease without esophagitis; T18.128A Food in esophagus causing other injury, initial encounter; E87.6 Hypokalemia
CPT/HCPCS: 31720; 36415; 36569; 36600; 71010; 71275; 74220; 80048; 80053; 80069; 80202; 81001; 82330; 82550; 82553; 82570; 82803; 82805; 82947; 82962; 83036; 83690; 83735; 83880; 84100; 84132; 84134; 84145; 84295; 84439; 84443; 84478; 84481; 84484; 84540; 85014; 85025; 85610; 85730; 86850; 86900; 86901; 86920; 87015; 87040; 87070; 87075; 87102; 87116; 87205; 87641; 89190; 93005; 94002; 94003; 94640; 94660; 94770; 96374; 96375; 96376; 97110-GP; 97116-GP; 97162-GP; 97164-GP; 97530-GP; 99285; A9270-GY; C1751; C1769; C9113; G8978-CN-GP; G8979-CI-GP; G8979-CL-GP; J0282; J0360; J0690; J1170; J1450; J1610; J1630; J1940; J2250; J2270; J2370; J2405; J2543; J2550; J2710; J3010; J3360; J3370; J3411; J3475; P9047; Q9967